=== PATIENT | female | born 1990 | race Caucasian/White ===

== ENCOUNTER 2017-12-17 15:17 | Emergency (ER) | payer SELFPAY ==
[~2017-12-17] VITALS: Ht 162.6 cm; Wt 51.4 kg
[~2017-12-17 15:17] MED LIST: METR500T PO
[2017-12-17 15:50] LABS: BASOPHILS # (AUTO) 0.04 x10^3/uL (0-0.1); BASOPHILS % (AUTO) 1 % (0-1); EOSINOPHILS # (AUTO) 0.01 x10^3/uL (0-0.4); EOSINOPHILS % (AUTO) 0 % (1-7); LYMPHOCYTES # (AUTO) 1.45 x10^3/uL (1-3.4); LYMPHOCYTES % (AUTO) 17 % (22-44); MD NO; MEAN CORPUSCULAR HEMOGLOBIN 32.6 pg (27.0-34.8); MEAN CORPUSCULAR HGB CONC 34.1 g/dL (32.4-35.8); MEAN CORPUSCULAR VOLUME 95.6 fL (80-100); MEAN PLATELET VOLUME 8.1 fL (7.4-10.4); MONOCYTES # (AUTO) 0.29 x10^3/uL (0.2-0.8); MONOCYTES % (AUTO) 3 % (2-9); NEUTROPHILS # (AUTO) 6.73 x10^3/uL (1.8-6.8); NEUTROPHILS % (AUTO) 79 % (42-75); PLATELET COUNT 280 x10^3/uL (130-400); RED CELL DISTRIBUTION WIDTH 12.6 % (9.6-15.2)
[2017-12-17 16:01] LABS: ALBUMIN 4.4 g/dL (3.4-5.0); ANION GAP 10 mmol/L (5-15); CALCIUM 8.8 mg/dL (8.5-10.1); CHLORIDE 107 mmol/L (98-107); CREATININE 0.81 mg/dL (0.55-1.02)
[2017-12-17 17:17] LABS: MICROSCOPIC NOT IND
[2017-12-17 17:25] VITALS: BP 118/79
[2017-12-17 17:31] LABS: CULTURE INDICATED? NO
== END 2017-12-17 17:30 | disposition home or self-care (01) ==
LOC: ED 17:14
DX: R55 Syncope and collapse (principal)
CPT/HCPCS: 36415; 76830; 80048; 81003; 82040; 84703; 85025; 93005; 99285